=== PATIENT | male | born 1975 | race Caucasian/White ===

== ENCOUNTER 2017-01-18 01:28 | Emergency (ER) | payer OTHER ==
[~2017-01-18] VITALS: Ht 180.3 cm; Wt 77.3 kg
[~2017-01-18 01:28] MED LIST: AMBIEN 10MG10 MG PO; IMITREX 6M6 MG/0.5 M SQ; LEXAPRO 10MG10 MG PO; WELLBUTRIN 100100 MG PO
[2017-01-18 01:32] VITALS: BP 120/77; TEMP 99
[2017-01-18] MEDS ORDERED: WELLBUTRIN 75MG75 MG (01:38)
[2017-01-18 02:31] VITALS: PULSE 65
== END 2017-01-18 02:32 | disposition home or self-care (01) ==
LOC: COL.ER 01:28
DX: H60.92 Unspecified otitis externa, left ear (principal)
CPT/HCPCS: J1885

== ENCOUNTER 2017-10-22 18:44 | Emergency (ER) | payer OTHER ==
[~2017-10-22] VITALS: Ht 180.3 cm; Wt 76.4 kg
[~2017-10-22 18:44] MED LIST changes: +WELLBUTRIN 75MG75 MG
[2017-10-22 18:49] VITALS: BP 143/65; PULSE 85; TEMP 96.8
[2017-10-22] MEDS ORDERED: WELLBUTRIN XL150 MG PO (20:17)
== END 2017-10-22 21:14 | disposition home or self-care (01) ==
LOC: COL.ER 18:44
DX: F32.9 Major depressive disorder, single episode, unspecified (principal); F43.10 Post-traumatic stress disorder, unspecified

== ENCOUNTER 2020-03-23 11:18 | Emergency (ER) | payer OTHER ==
[~2020-03-23] VITALS: Ht 180.3 cm; Wt 75.0 kg
[~2020-03-23 11:18] MED LIST changes: +WELLBUTRIN XL150 MG PO
[2020-03-23 11:28] VITALS: BP 107/77; TEMP 98.8
[2020-03-23] MEDS ORDERED: CRUTCHES MC (12:49)
[2020-03-23] MEDS ORDERED: MOBIC 7.5MG7.5 MG PO (12:49)
[2020-03-23 13:08] VITALS: PULSE 73
== END 2020-03-23 13:10 | disposition home or self-care (01) ==
LOC: COL.ER 11:18
DX: M25.561 Pain in right knee (principal)
CPT/HCPCS: L1846

== ENCOUNTER 2021-04-25 13:04 | Day surgery (SDC) | payer OTHER ==
[~2021-04-25] VITALS: Ht 180.3 cm; Wt 86.3 kg
[2021-04-25] VITALS (10 sets, daily range): BP systolic 100–117; BP diastolic 58–71; PULSE 62–75; TEMP 97.5–98.2
[~2021-04-25 13:04] MED LIST changes: +CRUTCHES MC; +MOBIC 7.5MG7.5 MG PO
--- NOTE | 2021-04-25 14:39 | NUR ---
Initial visit; Patient thanked Power [employer] Operator for offering prayer and encouragement prior to his surgical procedure.
[2021-04-25] MEDS ORDERED: WELLBUTRIN XL300 M1 PO (15:29)
--- NOTE | 2021-04-25 18:03 | NUR ---
PT TO ROOM 343 PER BED WITH REPORT FROM [facility] PAC[facility]. PT IS A/O X3, LUNGS CTA, BOWEL SOUNDS HYPO, FALCON CATH WITH CBI RUNNING PINK TO FALCON BAG. IV TO LFA. PT CALLING FAMILY ON PERSONEL CELL PHONE.
--- NOTE | 2021-04-25 20:31 | NUR ---
Pt has been ok. Pain rated 0/10. Vs are stable . Will continue to monitor.
[2021-04-26 04:11] VITALS: BP 100/51; PULSE 62; TEMP 98.2
--- NOTE | 2021-04-26 06:50 | NUR ---
PT resting in bed during shift report. He has no complaints at this time. Output is light pink. Pt has ordered his breakfast, call light within reach
[2021-04-26 08:30] VITALS: BP 107/63; PULSE 65; TEMP 98.1
--- NOTE | 2021-04-26 08:38 | NUR ---
Pt doing well with no pain complaints. CBI running at slow to moderate rate with pink tinged output. He has had breakfast, no other needs verbalized, call light within reach
--- NOTE | 2021-04-26 10:08 | NUR ---
CBI now running at slow rate. Output is light pink to clear
--- NOTE | 2021-04-26 10:27 | NUR ---
loft worker apprentice met with patient to discuss discharge plan. Patient lives alone at home and has his son department of mathematics chair in [place]. Patient states Roslyn is his ex-, but they are amicable. States "she is actually going to be the one to pick me up from here and take me home". [facility]. Patient does not have a DPOA-HC established and does not wish to at this time. *Discharge Plan: Home*
[2021-04-26 11:04] VITALS: BP 113/64; PULSE 76; TEMP 98.4
--- NOTE | 2021-04-26 13:00 | NUR ---
Dr Chung in recently to see patient. CBI clamped at this time. Pt stated that his ride will be here around 3pm. Informed him that as of right now, I do not have any orders for him to leave and that Dr Chung stated that he would be in touch around 2:30. Pt denies any other needs. Reviewed catheter care as well as leg bag teaching. Stressed the importance of plenty of fluid intake as well as limit activity
[2021-04-26] MEDS ORDERED: MACROBID 1100 MG/CAP PO (15:01)
--- NOTE | 2021-04-26 15:30 | NUR ---
Output had become more dark. There are no clots noted. Informed Dr Chung. Pt was adamant that he was going home. Orders received from Dr Chung for discharge. Reviewed discharge instructions with pt and going over catheter care as well as appointment and prescription. INT removed from left hand. Pt escorted out
== END 2021-04-26 15:30 | disposition home or self-care (01) ==
LOC: SDCO 13:04 → SURG 18:00 → SDCO 04-26 15:30
DX: C67.8 Malignant neoplasm of overlapping sites of bladder (principal); F41.9 Anxiety disorder, unspecified; M19.90 Unspecified osteoarthritis, unspecified site; E78.00 Pure hypercholesterolemia, unspecified; E78.2 Mixed hyperlipidemia; F32.9 Major depressive disorder, single episode, unspecified; F43.10 Post-traumatic stress disorder, unspecified; G47.33 Obstructive sleep apnea (adult) (pediatric); F17.210 Nicotine dependence, cigarettes, uncomplicated; G43.909 Migraine, unspecified, not intractable, without status migrainosus
CPT/HCPCS: OP; J0690; J1100; J1885; J2405; J2704; J3010

== ENCOUNTER 2021-05-28 06:25 | Day surgery (SDC) | payer OTHER ==
[~2021-05-28] VITALS: Ht 180.3 cm; Wt 85.6 kg
[~2021-05-28 06:25] MED LIST changes: +MACROBID 1100 MG/CAP PO; +WELLBUTRIN XL300 M1 PO
[2021-05-28 06:37] VITALS: BP 106/68; PULSE 77; TEMP 97.8
[2021-05-28 10:25] VITALS: BP 122/76; PULSE 62; TEMP 97.5
--- NOTE | 2021-05-28 10:25 | NUR ---
The patient arrived back to [facility] from the recovery room at this time. The patient appears alert and oriented and denies any pain or nausea at this time. The patient requests to drink his red bull from his bag and denies wanting anything further to eat or drink at this time. The patient has a catheter in place which is secured to his left leg and drainage red tinged urine without difficulty. Call light is within reach. The patient denies any further needs at this time. Will continue to monitor the patient.
[2021-05-28 10:40] VITALS: BP 109/79; PULSE 6
--- NOTE | 2021-05-28 10:40 | NUR ---
The patient appears to be tolerating the drink well and denies wanting anything to eat at this time. Vital signs appear stable. Will continue to monitor the patient.
[2021-05-28 10:55] VITALS: BP 108/73; PULSE 55
--- NOTE | 2021-05-28 10:55 | NUR ---
The patient voices a desire to be discharged home and asked what he needed to do in order for that to happen. Vital signs remain stable. The nurse informed the patient that she needs to review the post op orders and print the discharge paperwork to review prior to him leaving. He verbalized understanding.
[2021-05-28 11:15] VITALS: BP 117/74; PULSE 72
--- NOTE | 2021-05-28 11:15 | NUR ---
Discharge instructions were reviewed with the patient at this time. He verbalized understanding and has no questions for the nurse at this time. The patient states he "knows how to use a leg bag" and doesn't "need any help to switch it over". The nurse instructed the patient to get dressed and notify the staff if he needs any help with his leg bag.
--- NOTE | 2021-05-28 11:35 | NUR ---
The patient called his ride, Adrienne, who is still in [place] at an appointment. She told him it would be 30 minutes before she could come to get him. He verbalized a desire to be escorted outside to wait for her alone so he could smoke a cigarette but he nurse informed him that he could not do that and had to be discharged into the care of an adult upon discharge.
--- NOTE | 2021-05-28 12:05 | NUR ---
The patient was escorted out via wheelchair to a private vehicle by JESS Calixto. The patient's belongings and discharge paperwork were sent with him. Adrienne, his ex , is present to drive him home.
== END 2021-05-28 12:05 | disposition home or self-care (01) ==
LOC: SDCO 06:25
DX: C67.8 Malignant neoplasm of overlapping sites of bladder (principal); G47.33 Obstructive sleep apnea (adult) (pediatric); M19.90 Unspecified osteoarthritis, unspecified site; G43.909 Migraine, unspecified, not intractable, without status migrainosus; E78.2 Mixed hyperlipidemia; F43.10 Post-traumatic stress disorder, unspecified; F32.9 Major depressive disorder, single episode, unspecified; F41.9 Anxiety disorder, unspecified; F17.210 Nicotine dependence, cigarettes, uncomplicated; Z20.822 Contact with and (suspected) exposure to COVID-19; Z79.899 Other long term (current) drug therapy; Z99.89 Dependence on other enabling machines and devices; Z90.89 Acquired absence of other organs
CPT/HCPCS: J0690; J1100; J1885; J2175; J2405; J2704; J3010; J7120